=== PATIENT | female | born 1975 | race Caucasian/White ===

== ENCOUNTER 2019-10-15 10:15 | Emergency (ER) | payer OTHER, SELFPAY ==
--- NOTE | 2019-10-15 10:22 | ED.GENADULT ---
HPI - General Adult General Chief complaint: Animal Bite Stated complaint: POS spider bite/snake bite Time Seen by Provider: 10/15/19 10:29 Source: patient Mode of arrival: ambulatory Limitations: no limitations History of Present Illness HPI narrative: 44-year-old female patient presents to the [facility] with complaints of possibly some type of bite to her left foot second toe that happened this morning when she was walking her dog. Patient states she was out in the grass and thinks that she might of stepped on something and got out sting or bite to her second toe. Patient states now it is red, swollen and slightly warm to the touch. Patient is diabetic but states she typically does have her sugars under control. Patient denies taking anything for her symptoms. Denies any chest pain, shortness of breath. Related Data Home Medications Medication Instructions Recorded Confirmed lisinopril 5 mg PO BID 10/15/19 10/15/19 metformin 1,000 mg PO BID 10/15/19 10/15/19 Allergies Allergy/AdvReac Type Severity Reaction Status Date / Time amoxicillin Allergy Severe petechiae Verified 06/29/18 09:33 clavulanic acid Allergy Severe petechiae Verified 06/29/18 09:33 Review of Systems Review of Systems: Narrative: CONSTITUTIONAL: Denies fever, chills, or sweats. EYES: Denies visual changes, redness, or discharge. ENT: Denies rhinorrhea, congestion, sore throat, or otalgia. CARDIOVASCULAR: Denies chest pain, palpitations, or edema. RESPIRATORY: Denies cough or dyspnea. GASTROINTESTINAL: Denies abdominal pain, nausea, vomiting, or diarrhea. GENITOURINARY: Denies dysuria or hematuria. SKIN: Denies rash or itching. Positive bite to left foot, second toe MUSCULOSKELETAL: Denies back pain, joint pain, or myalgia. NEUROLOGIC: Denies headache, numbness, or weakness. PSYCHIATRIC: Denies anxiety or depression. [facility] Past Medical History Medical History (Updated 10/15/19 @ 10:36 by REJI Tijerina) Fractures Right thumb, bilateral ankle Hypertension Surgical History Surgical History (Updated 10/15/19 @ 10:24 by REJI Tijerina) History of orthopedic surgery Right knee Social History Social History Gender identity (if verbalized by the patient): Female Comments At the time of my signature I agree with nursing past medical history, surgical, social, and family history. There is no relevant family history pertinent to the presenting complaint. Exam Narrative: Exam Narrative: GENERAL: Well-appearing, well-nourished, and in no acute distress. HEAD: Normocephalic, atraumatic. EYES: PERRLA and EOMI. ENT: Nares clear, no rhinorrhea or epistaxis. Mucous membranes moist. NECK: Supple. No lymphadenopathy CHEST: Clear to auscultation. No respiratory distress. HEART: Regular rate and rhythm. No murmur heard. Normal peripheral pulses. ABDOMEN: Soft, nontender, nondistended, normal active bowel sounds. EXTREMITIES: Normal range of motion. No edema. SKIN: Warm, dry, no rash. Patient has small insects punctate elroy noted on the dorsal side of the second toe on the left foot. There is swelling, slight warmth. The erythema redness and slight warmth does extend to the dorsal side of the midfoot. Patient does have excellent range of motion, good DP pulses that are 2+. Good cap refill. NEURO: No focal deficits. Alert and oriented x3. Course Vital Signs Vital signs: Vital Signs Temperature 36.6 C 10/15/19 10:34 Pulse Rate 73 10/15/19 10:34 Respiratory Rate 10/15/19 10:34 Blood Pressure 134/82 10/15/19 10:34 Pulse Oximetry 100 10/15/19 10:34 Temperature 36.6 C 10/15/19 10:34 Pulse Rate 73 10/15/19 10:34 Respiratory Rate 10/15/19 10:34 Blood Pressure 134/82 10/15/19 10:34 Pulse Oximetry 100 10/15/19 10:34 Vital signs reviewed. Medical Decision Making Differential Diagnosis Differential Diagnosis: Differential diagnosis: Ab
[2019-10-15 10:34] VITALS: BP 134/82; PULSE 73; RESP 20; TEMP 36.6; O2SAT 100
== END 2019-10-15 10:45 | disposition home or self-care (01) ==
PROVIDERS: Emergency Provider Nurse Practitioner Family; PCP Internal Medicine
DX: S90.465A Insect bite (nonvenomous), left lesser toe(s), initial encounter (principal); W57.XXXA Bitten or stung by nonvenomous insect and other nonvenomous arthropods, initial encounter; L24.9 Irritant contact dermatitis, unspecified cause; I10 Essential (primary) hypertension; E11.9 Type 2 diabetes mellitus without complications
CPT/HCPCS: 99213; G0463

== ENCOUNTER 2020-05-08 11:24 | Emergency (ER) | payer OTHER, SELFPAY ==
[2020-05-08 11:41] VITALS: BP 163/85; PULSE 68; RESP 16; TEMP 36.5; O2SAT 99
--- NOTE | 2020-05-08 11:43 | ED.GENADULT ---
HPI - General Adult General Chief complaint: Upper Respiratory Infection Stated complaint: SCRATCHY THROAT/CHEST TIGHT/LOSING VOICE Time Seen by Provider: 05/08/20 11:43 Source: patient and RN notes reviewed Mode of arrival: ambulatory Limitations: no limitations History of Present Illness HPI narrative: 44-year-old female presents with complaints of upper respiratory infection symptoms, fatigue, scratchy sore throat, and intermittent cough for 1 day. Aida reports symptoms started on 05/07/2020, has increased throughout the day and was exposed to COVID-19 on Monday May 04, 2020 while sitting next to an individual for 1-2 hours while wearing a mask. Dry intermittent cough without chest congestion. Rhinorrhea and nasal congestion. Exacerbating factors consist of swallowing. No fevers or sweats. No nausea, vomiting, and abdominal pain. Tolerating p.o. intake well. Denies chest pain, coughing up blood, facial pain, foreign body sensation, and rash. The patient reports she have not been diagnosed with COVID-19. The patient reports she is not waiting for the results of a COVID-19 lab test. The patient reports she do not have weakness, myalgia, or chills. The patient reports she do not have a worsening cough. The patient reports she do not have any loss of smell or taste or diarrhea. Denies recent traveling. Aida reports concerns for COVID-19 after recent exposure. At this time, patient is not suspected of having COVID-19. Some parts of this dictation were generated by voice recognition software and may contain typographical and/or grammatical inaccuracies. Related Data Home Medications Medication Instructions Recorded Confirmed lisinopril 5 mg PO BID 10/15/19 10/15/19 metformin 1,000 mg PO BID 10/15/19 10/15/19 Allergies Allergy/AdvReac Type Severity Reaction Status Date / Time amoxicillin Allergy Severe petechiae Verified 05/08/20 11:31 clavulanic acid Allergy Severe petechiae Verified 05/08/20 11:31 Review of Systems Review of Systems: Narrative: CONSTITUTIONAL: Denies fever, chills, sweats. Complains of fatigue. EYES: Denies visual changes, redness, discharge. ENT: Complains of rhinorrhea, congestion, scratchy throat. Denies otalgia. CARDIOVASCULAR: Denies chest pain, palpitations, edema. RESPIRATORY: Denies wheezing, dyspnea. Complains of intermittent dry cough. GASTROINTESTINAL: Denies abdominal pain, nausea, vomiting, diarrhea. GENITOURINARY: Denies dysuria, hematuria, abnormal discharge. SKIN: Denies rash or itching. MUSCULOSKELETAL: Denies acute back pain, joint pain, myalgia. NEUROLOGIC: Denies numbness or focal weakness. PSYCHIATRIC: Denies anxiety or depression. All systems reviewed & are unremarkable except as noted in HPI and below. [facility] Past Medical History Medical History (Updated 05/08/20 @ 12:49 by REJI Jefferson) Diabetes Fractures Right thumb, bilateral ankle Hypertension Surgical History Surgical History (Updated 05/08/20 @ 12:49 by REJI Jefferson) H/O right wrist surgery History of orthopedic surgery Right knee-ACL reconstruction, arthroscopic Family History Family History (Updated 05/08/20 @ 12:50 by REJI Jefferson) Father Heart disease Mother Smoker in home Social History Social History (Updated 05/08/20 @ 12:51 by REJI Jefferson) Smoking status: Never smoker Tobacco type: cigarettes Second hand tobacco smoke exposure: No (none since she moved out of her parents home) Alcohol intake: current Substance use: never Substance use type: does not use Living arrangements: with family Occupation/Education: occupation Gender identity (if verbalized by the patient): Female Sexual Orientation (if Verbalized by the Patient): Straight or Heterosexual Comments At time of signature, agree with nurse past medical, surgical, social, and family history. There is no relevant family history pertinent to the presenting comp
== END 2020-05-08 12:25 | disposition home or self-care (01) ==
PROVIDERS: Emergency Provider Nurse Practitioner Family; PCP Internal Medicine
DX: J06.9 Acute upper respiratory infection, unspecified (principal); Z20.822 Contact with and (suspected) exposure to COVID-19; E11.9 Type 2 diabetes mellitus without complications; I10 Essential (primary) hypertension
CPT/HCPCS: 87081; 87426; 87804; 87880; 99213; C9803; G0463

== ENCOUNTER 2022-05-21 08:57 | Emergency (ER) | payer OTHER, SELFPAY ==
--- NOTE | ~2022-05-21 | XR_ITS ---
EXAMINATION: XR wrist LT min 3V DATE: 05/21/2022 09:19 INDICATION: Left wrist pain. Fall. TECHNIQUE: 4 views of left wrist were obtained. COMPARISON: None. FINDINGS: Bone alignment is normal. No fracture. Joint spaces are well maintained. IMPRESSION: 1. Normal left wrist. Reviewed, dictated and finalized at location A. GER COPY IMPRESSION: 1. Normal left wrist.
--- NOTE | ~2022-05-21 | XR_ITS ---
EXAMINATION: XR finger 1st LT min 2V DATE: 05/21/2022 09:19 INDICATION: Left thumb pain. Fall. TECHNIQUE: 3 views of left thumb were obtained. COMPARISON: None. FINDINGS: Bone alignment is normal. No fracture. There is mild osteoarthritis of first interphalangea l joint. IMPRESSION: 1. Mild osteoarthritis of first interphalangeal joint. Reviewed, dictated and finalized at location A. SCRIPTION COORDINATOR
[2022-05-21 09:05] VITALS: BP 149/93; PULSE 85; RESP 16; TEMP 36.5; O2SAT 99
--- NOTE | 2022-05-21 09:20 | ED.UPPEXIN ---
HPI - Extremity Injury (Upper) General Chief Complaint: Extremity Injury, Upper Stated Complaint: INJURED L WRIST/THUMB Time Seen by Provider: 05/21/22 09:20 Source: patient, RN notes reviewed and old records reviewed Mode of arrival: ambulatory Limitations: no limitations History of Present Illness HPI narrative: 46 year old female who presents to [facility] with injury to her left base of thumb and wrist area after fall yesterday where she tried to catch herself with her left hand.Patient reports pain at base of left thumb and radial aspect of left wrist with some swelling and difficulty flexing and extending wrist and gripping with thumb. Patient has been applying ice and and has taken Ibuprofen. for her pain which she rates as 3/10 Onset (ago): day(s) (1) Severity scale (1-10): 3 Treatments prior to arrival: cold therapy and NSAIDS Related Data Home Medications Medication Instructions Recorded Confirmed lisinopril 5 mg tablet 20 mg PO BID 10/15/19 05/21/22 metformin 1,000 mg tablet 1,000 mg PO BID 10/15/19 05/21/22 Allergies Allergy/AdvReac Type Severity Reaction Status Date / Time amoxicillin Allergy Severe petechiae Verified 05/21/22 09:09 clavulanic acid Allergy Severe petechiae Verified 05/21/22 09:09 Review of Systems Review of Systems: CONSTITUTIONAL: Denies fever, chills, or sweats. CARDIOVASCULAR: Denies chest pain, palpitations, or edema. RESPIRATORY: Denies cough or dyspnea. SKIN: Denies rash or itching. Denies lacerations or abrasions MUSCULOSKELETAL: Reports pain at base of left thumb and left wrist along radial aspect NEUROLOGIC: Denies numbness, or weakness. All systems reviewed & are unremarkable except as noted in HPI and below [facility] Past Medical History Medical History (Updated 05/22/22 @ 08:00 by Sarika Casper NP) Diabetes Fractures Right thumb, bilateral ankle Hypertension Surgical History Surgical History (Updated 05/22/22 @ 07:54 by Sarika Casper NP) H/O right wrist surgery History of orthopedic surgery Right knee-ACL reconstruction, arthroscopic Hx of shoulder surgery right rotator cuff surgery Family History Family History (Updated 05/08/20 @ 12:50 by REJI Jefferson) Father Heart disease Mother Smoker in home Social History Social History (Updated 05/08/20 @ 12:51 by REJI Jefferson) Smoking status: Never smoker Tobacco type: cigarettes Second hand tobacco smoke exposure: No (none since she moved out of her parents home) Alcohol intake: current Substance use: never Substance use type: does not use Living arrangements: with family Occupation/Education: occupation Gender identity (if verbalized by the patient): Female Sexual Orientation (if Verbalized by the Patient): Straight or Heterosexual Comments At time of signature, agree with nursing past medical, surgical, social and family history. There is no relevant family history pertinent to the presenting complaint Exam Narrative: GENERAL: Well-appearing, well-nourished, and in no acute distress. HEAD: Normocephalic, atraumatic. EYES: PERRLA, conjunctivae clear NECK: Supple. CHEST: Speaks in full sentences. No respiratory distress. HEART: Regular rate and rhythm. Normal and equal peripheral pulses. EXTREMITIES: Left wrist has normal strength and sensation, normal range of motion. mild edema no ecchymosis. 5/5 strength with some pain with flexion and extension. Normal sensation with sensitivity to light touch and pain. some radial apect point tenderness.? ?No open wounds, no skin tenting, no devitalized tissue or atrophy, no trophic changes, no obvious deformity, alignment normal, nearby joints and structures intact. Distal pulses palpable and equal bilaterally, skin warm, dry, pink. Capillary refill less than 3 seconds. Left base of thumb swollen with some swelling and pain with movement, sensation and circulation is intact. Course Course Level of Care:
== END 2022-05-21 09:42 | disposition home or self-care (01) ==
PROVIDERS: Emergency Provider Registered Nurse; PCP Internal Medicine
DX: S63.622A Sprain of interphalangeal joint of left thumb, initial encounter (principal); S63.502A Unspecified sprain of left wrist, initial encounter; W19.XXXA Unspecified fall, initial encounter; E11.9 Type 2 diabetes mellitus without complications; I10 Essential (primary) hypertension
CPT/HCPCS: 73110; 73140; 99213; G0463

== ENCOUNTER 2024-02-29 11:39 | Emergency (ER) | payer BC, SELFPAY ==
[2024-02-29 11:52] VITALS: BP 148/83; PULSE 73; RESP 16; TEMP 36.3; O2SAT 98
--- NOTE | 2024-02-29 12:15 | ED.FEMALEGU ---
HPI - Female Genitourinary General Chief complaint: Urogenital-Female Stated complaint: urinary issue Time Seen by Provider: 02/29/24 12:16 Source: patient and RN notes reviewed Mode of arrival: ambulatory Limitations: no limitations History of Present Illness HPI Narrative: 48-year-old female presented for complaint of bladder pressure, burning with urination and frequency last few days. Denies hematuria, nausea, vomiting, abdominal pain, flank pain, constipation, diarrhea, fevers or chills. History of renal stones, states this does not feel similar. Related Data Home Medications Medication Instructions Recorded Confirmed lisinopril 5 mg tablet 20 mg PO BID 10/15/19 02/29/24 metformin 1,000 mg tablet 1,000 mg PO BID 10/15/19 02/29/24 Allergies Allergy/AdvReac Type Severity Reaction Status Date / Time amoxicillin Allergy Severe petechiae Verified 02/29/24 11:55 clavulanic acid Allergy Severe petechiae Verified 02/29/24 11:55 Review of Systems Review of Systems: CONSTITUTIONAL: Denies body aches, fever, chills, or sweats. CARDIOVASCULAR: Denies chest pain, palpitations, or edema. RESPIRATORY: Denies cough or dyspnea. GASTROINTESTINAL: Denies abdominal pain, nausea, vomiting, or diarrhea. GENITOURINARY: Reports dysuria, frequency, urgency, denies hematuria, flank pain SKIN: Denies rash, itching, or wounds. MUSCULOSKELETAL: Denies back pain or myalgia. [facility] Past Medical History Medical History Diabetes Fractures Right thumb, bilateral ankle Hypertension Surgical History Surgical History H/O right wrist surgery History of orthopedic surgery Right knee-ACL reconstruction, arthroscopic Hx of shoulder surgery right rotator cuff surgery Family History Family History Father Heart disease Mother Smoker in home Social History Social History Smoking status: Never smoker Tobacco type: cigarettes Second hand tobacco smoke exposure: No (none since she moved out of her parents home) Alcohol intake: current Substance use: never Substance use type: does not use Living arrangements: with family Occupation/Education: occupation Gender identity (if verbalized by the patient): Female Sexual Orientation (if Verbalized by the Patient): Straight or Heterosexual Comments At time of signature, I have reviewed and agree with nursing past medical, surgical, social and family history unless otherwise noted. Please see nursing chart for further information. There is no relevant family history pertinent to the presenting complaint Exam Narrative: GENERAL: Well-appearing ENT: Mucous membranes pink and moist. NECK: Normal AROM. Supple. CHEST: No respiratory distress. Clear to auscultation. HEART: Regular rate and rhythm. ABDOMEN: Soft, nontender, nondistended, normal active bowel sounds. No CVA tenderness MUSCULOSKELETAL: No bony tenderness. SKIN: Warm, dry, no rash. NEURO: No focal deficits. Alert and oriented x3. Gait steady. PSYCH: Normal affect. Course Course Emergency Course: Patient is aware of diagnosis, understands and agrees to treatment plan. Anticipatory guidance given. Patient agrees to follow-up as directed and is aware of reasons to seek care at the emergency department. Portions of this record may have been created with voice recognition software Level of Care: Express Care Visit Vital Signs Vital signs: Vital Signs Temperature 97.3 F L 02/29/24 11:52 Pulse Rate 73 02/29/24 11:52 Respiratory Rate 16 02/29/24 11:52 Blood Pressure 148/83 H 02/29/24 11:52 Pulse Oximetry 98 02/29/24 11:52 Temperature 97.3 F L 02/29/24 11:52 Pulse Rate 73 02/29/24 11:52 Respiratory Rate 16 02/29/24 11:52 Blood Pressure 148/83 H 02/29/24 11:52 Pulse Oximetry 98 02/29/24 11:52 Oxygen Delivery Room Air 02/29/24 11:53 Reviewed MDM - Female Genitourinary MDM Narrative Medical decision making narrative: Discussed physical exam findings and urine dip. Advised supportive measures and signs/symptoms to go to the ER. Pt is appropriate for outpt treatment and f/u. Differential Diagnosis Differential diagnosis: Likely urinary tract infection and cystitis Discharge Plan Discharge Clinical Impression: Dysuria Patient Disposition: Home, Self-Care Condition: Stable Instructions: Antibiotic Form, Urinary Tract Infection in Women (ED) Additional Instructions: Take the antibiotic as prescribed The urine will be sent of for a culture to identify what type of bacteria is causing your infection. If the culture shows that the antibiotic will not get rid of your infection, you will be notified and a new antibiotic will be called in for you. Increase water intake you will need to follow up with your PCP, call to schedule an appointment. Go to the ER for any worsening symptoms or concerns Prescriptions: New nitrofurantoin monohyd/m-cryst [Macrobid] 100 mg capsule 100 mg PO Q12H 5 Days Qty: 10 0RF Rx Instructions: must administer with a meal/food No Action metformin 1,000 mg Tablet 1,000 mg PO BID lisinopril 5 mg Tablet 20 mg PO BID Follow-up/Referrals: Olesya,Homar Hoang MD [Primary Care Provider] - Time of Disposition: 12:21
[2024-02-29 12:37] LABS: EDUAAPPEAR Cloudy; EDUABILI Negative (Negative); EDUABLOOD 2+ (Negative); EDUACOLOR1 Amber; EDUAGLUCOSE Trace (Negative); EDUAKETONE Negative (Negative); EDUALEUKO Negative (Negative); EDUANITRATE Negative (Negative); EDUAPROTEIN 1+ (Negative); EDUASPGRAVITY 1.025; EDUAUROBILI 0.2
== END 2024-02-29 12:25 | disposition home or self-care (01) ==
PROVIDERS: Emergency Provider Nurse Practitioner Family; PCP Internal Medicine
DX: R30.0 Dysuria (principal); E11.9 Type 2 diabetes mellitus without complications; Z79.84 Long term (current) use of oral hypoglycemic drugs; I10 Essential (primary) hypertension
CPT/HCPCS: 81003; 87086; 99213; G0463